=== PATIENT | female | born 1945 | race Caucasian/White ===

== ENCOUNTER 2021-04-12 09:37 | Observation (INO) ==
[2021-04-12 10:35] LABS: Basophils # 0.1 K/mcL (0.0-0.2); Basophils % 1.5 %; Eosinophils # 0.2 K/mcL (0.0-0.6); Eosinophils % 5.8 %; Immature Granulocytes % 0.3 % (0-4); Lymphocytes # 1.1 K/mcL (0.6-4.6); Lymphocytes % 26.8 %; Mean Corpuscular HGB Conc 33.3 g/dL (31.6-35.5); Mean Corpuscular Hemoglobin 30.3 pg (28.0-33.3); Mean Corpuscular Volume 90.9 fL (83.0-100.0); Mean Platelet Volume 9.1 fL (9.4-12.4); Monocytes # 0.5 K/mcL (0.0-1.3); Monocytes % 11.3 %; Neutrophils # 2.2 K/mcL (1.6-8.9); Platelet Count 337 K/mcL (140-400); Red Blood Count 3.96 M/mcL (3.82-4.97); Red Cell Distribution Width 13.3 % (11.5-14.5); Segmented Neutrophils % 54.3 %
[2021-04-12] MEDS ORDERED: Aspirin 325 MG TABLET PO ONE (10:38)
[2021-04-12 10:55] LABS: BUN/Creatinine Ratio 17 (6-26); Blood Urea Nitrogen 11 mg/dL (8-23); Calcium 9.3 mg/dL (8.6-10.3); Carbon Dioxide 27 mEq/L (23-29); Chloride 104 mEq/L (98-107); Glucose 84 mg/dL (70-105); Osmolality,Calculated 285 (280-300); Potassium 3.8 mEq/L (3.5-5.1); Sodium 138 mEq/L (136-145); Troponin I < 0.03 ng/mL (< 0.04); eGFR For African Americans > 60 (> 60); eGFR For Non-African Americans > 60 (> 60)
[2021-04-12] MEDS ORDERED: Nitroglycerin 0.4 MG TAB.SUBL SL ONE (12:35)
[2021-04-12] MEDS ORDERED: Naloxone 0.4 MG/ML INJ IVP PRN (14:19)
[2021-04-12] MEDS ORDERED: Ondansetron 4 MG/2 ML VIAL IVP PRN (14:19)
[2021-04-12] MEDS ORDERED: Acetaminophen 325 MG TABLET PO PRN (14:19)
[2021-04-12] MEDS ORDERED: Perflutren Lipid Microsphere 1.3 ML in 0.9 % Sodium Chloride 8.7 ML IVP PRN (14:24)
[2021-04-12] MEDS ORDERED: lisinopriL 5 MG TABLET PO SCH (14:30)
[2021-04-12 15:39] LABS: Thyroid Stimulating Hormone 1.708 mcIU/mL (0.340-5.600)
[2021-04-12 15:49] LABS: INR 1.1; Prothrombin Time 11.7 Seconds (9.4-12.1)
[2021-04-12] MEDS: Nitroglycerin 0.4 MG TAB.SUBL SL PRN ×2 (18:31→19:45)
[2021-04-12] MEDS ORDERED: Morphine Sulfate 2 MG/ML SYRINGE IVP ONE (19:53)
[2021-04-12] MEDS: Artificial Tears SOLN 15 ML BOTTLE BOTH EYES SCH (20:26)
[2021-04-12] MEDS ORDERED: Gabapentin 400 MG CAPSULE PO SCH (21:00)
[2021-04-12] MEDS: *HR* Heparin 5,000 UNIT/ML VIAL SQ SCH (22:11)
[2021-04-13] MEDS: Nitroglycerin 0.4 MG TAB.SUBL SL PRN (01:30)
[2021-04-13] MEDS ORDERED: Morphine Sulfate 2 MG/ML SYRINGE IVP PRN (01:58)
[2021-04-13] MEDS: *HR* Heparin 5,000 UNIT/ML VIAL SQ SCH (05:36)
[2021-04-13] MEDS ORDERED: Regadenoson 0.4 MG/5 ML SYRINGE IVP ONE (06:37)
[2021-04-13 06:47] LABS: Basophils # 0.1 K/mcL (0.0-0.2); Basophils % 1.4 %; Eosinophils # 0.2 K/mcL (0.0-0.6); Eosinophils % 4.1 %; Hematocrit 38.2 % (35.3-44.9); Hemoglobin 12.1 g/dL (11.5-15.4); Immature Granulocytes % 0.2 % (0-4); Lymphocytes # 1.4 K/mcL (0.6-4.6); Mean Corpuscular HGB Conc 31.7 g/dL (31.6-35.5); Mean Corpuscular Volume 91.6 fL (83.0-100.0); Mean Platelet Volume 9.1 fL (9.4-12.4); Monocytes # 0.4 K/mcL (0.0-1.3); Monocytes % 7.7 %; Neutrophils # 2.9 K/mcL (1.6-8.9); Platelet Count 336 K/mcL (140-400); Red Blood Count 4.17 M/mcL (3.82-4.97); Red Cell Distribution Width 13.3 % (11.5-14.5); Segmented Neutrophils % 58.6 %; White Blood Count 4.9 K/mcL (4.3-11.1)
[2021-04-13 06:52] VITALS: O2SAT 98
[2021-04-13 07:07] LABS: Alanine Aminotransferase 15 Units/L (7-52); Albumin 4.1 g/dL (3.5-5.7); Albumin/Globulin Ratio 1.4 (1.1-2.2); Alkaline Phosphatase 56 Units/L (34-104); Aspartate Amino Transferase 19 Units/L (13-39); BUN/Creatinine Ratio 15 (6-26); Bilirubin,Total 0.8 mg/dL (0.3-1.0); Blood Urea Nitrogen 11 mg/dL (8-23); Calcium 9.1 mg/dL (8.6-10.3); Carbon Dioxide 27 mEq/L (23-29); Chloride 102 mEq/L (98-107); Chol/HDL Ratio 2.1 (0-4.9); Cholesterol 190 mg/dL (< 200); Globulin 2.9 g/dL (2.4-3.5); Glucose 86 mg/dL (70-105); HDL Cholesterol 90 mg/dL (40-59); LDL Cholesterol,Calculated 83 mg/dL (< 100); Osmolality,Calculated 283 (280-300); Potassium 3.7 mEq/L (3.5-5.1); Sodium 137 mEq/L (136-145); Triglycerides 86 mg/dL (< 150); Troponin I < 0.03 ng/mL (< 0.04); eGFR For African Americans > 60 (> 60); eGFR For Non-African Americans > 60 (> 60)
[2021-04-13] MEDS ORDERED: lisinopriL 5 MG TABLET PO SCH (09:00)
[2021-04-13] MEDS ORDERED: Aspirin 81 MG TAB.CHEW PO SCH (09:00)
[2021-04-13] MEDS: Artificial Tears SOLN 15 ML BOTTLE BOTH EYES SCH (09:39)
[2021-04-13 10:56] VITALS: BP 146/71; PULSE 63; TEMP 98.1
== END 2021-04-13 12:09 | disposition home or self-care (01) ==
LOC: 3BNU 09:37 → EMEROOARM 09:37 → 3BNU 17:02
PROVIDERS: ADMIT Pharmacist; ATTEND Pharmacist